=== PATIENT | male | born 1985 | race Caucasian/White ===

== ENCOUNTER 2016-06-06 10:07 | Emergency (ER) | payer OTHER ==
[~2016-06-06] VITALS: Ht 190.5 cm; Wt 130.4 kg
[~2016-06-06 10:07] MED LIST: BACT800T5 PO; CEPH500T PO; DEXT15TA PO; DICL75 PO; EXCEDRIN MIGRAINE
[2016-06-06 10:18] VITALS: BP 146/77; PULSE 65; RESP 18; TEMP 98.1; O2SAT 99
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
[2016-06-06] MEDS ORDERED: KETOROLAC TROMETHAMINE 60 MG/2 ML (IM) VIAL IM ONE (11:30)
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
[2016-06-06] MEDS ORDERED: ACETAMINOPHEN 325 MG TAB PO ONE (12:45)
[2016-06-06 12:48] VITALS: BP 155/68; PULSE 59; RESP 16; O2SAT 100
[2016-06-06 13:08] VITALS: RESP 26
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
[2016-06-06] MEDS ORDERED: ACET500T36 PO (13:59)
[2016-06-06 14:15] VITALS: BP 147/61
== END 2016-06-06 14:17 | disposition home or self-care (01) ==
LOC: PHED 10:07
DX: R51 Headache (principal); M54.2 Cervicalgia; V43.53XA Car driver injured in collision with pick-up truck in traffic accident, initial encounter; Y93.89 Activity, other specified; Y92.410 Unspecified street and highway as the place of occurrence of the external cause
CPT/HCPCS: 72050; 72141; 96372; 99284; J1885; L0150